=== PATIENT | male | born 1950 | race Caucasian/White ===

== ENCOUNTER 2017-05-07 07:50 | Emergency (ER) | payer OTHER, MEDICARE ==
[~2017-05-07] VITALS: Ht 165.1 cm; Wt 72.7 kg
[~2017-05-07 07:50] MED LIST: ASPI325T PO; LIPI20TA PO; METO50TA PO; PLET50TA3 PO; TRAM50TA PO
[2017-05-07 07:58] VITALS: BP 128/73; PULSE 82; RESP 18; TEMP 98.1; O2SAT 96
== END 2017-05-07 10:00 | disposition left against medical advice (07) ==
LOC: PHED 07:50
DX: S49.92XA Unspecified injury of left shoulder and upper arm, initial encounter (principal); X58.XXXA Exposure to other specified factors, initial encounter; Z53.21 Procedure and treatment not carried out due to patient leaving prior to being seen by health care provider
CPT/HCPCS: 99281

== ENCOUNTER 2017-05-09 09:04 | Emergency (ER) | payer OTHER, MEDICARE ==
[~2017-05-09] VITALS: Ht 167.6 cm; Wt 72.6 kg
[2017-05-09 09:18] VITALS: BP 134/86; PULSE 86; RESP 18; TEMP 97.6; O2SAT 96
[2017-05-09] MEDS ORDERED: METO25TA3 PO (09:29)
[2017-05-09] MEDS ORDERED: TRAM50TA PO (09:29)
[2017-05-09] MEDS ORDERED: METF500T PO (09:29)
[2017-05-09] MEDS ORDERED: CILO100T PO (09:29)
[2017-05-09] MEDS ORDERED: ASPI81CH CHEW (09:29)
[2017-05-09] MEDS ORDERED: ATOR20TA15 PO (09:29)
--- NOTE | 2017-05-09 09:44 | PD ---
HPI Chief Complaint: Musculoskeletal Complaint Time Seen by Provider: 09:15 Travel History International Travel<30 days: No Contact w/Intl Traveler<30days: No Traveled to known affect area: No History of Present Illness HPI This is a 66-year-old male who presents to the emergency department having been hammering when he had sudden onset of left wrist pain, intermittent, worse with twisting his wrist and moving his wrist, improved with rest, feeling a snapping sensation in his wrist. He never had any swelling and he is able to move everything but the pain has persisted for 2 weeks. PFSH Past Medical History Depression: Yes Cancer: No Cardiovascular Problems: Yes High Cholesterol: Yes Diabetes: Yes (BORDERLINE) Patient Takes Glucophage: Yes Diminished Hearing: No Genitourinary: No Hepatitis: No Hiatal Hernia: No Hypertension: Yes Musculoskeletal: Yes (DJD) Reproductive: No Respiratory: Yes Sleep Apnea: Yes Thyroid Disease: No Past Surgical History Abdominal Surgery: No Cardiac Surgery: No Ear Surgery: No Endocrine Surgery: No Eye Surgery: No Genitourinary Surgery: No Gynecologic Surgery: No Oral Surgery: No Pacemaker: No Thoracic Surgery: No Other Surgery: Yes (MULTIPLE SHRAPNEL REMOVAL THROUGHOUT BODY) Social History Alcohol Use: No Tobacco Use: No (QUIT 3 YEARS AGO) Substance Use: Yes (cannaboids.) Allergies-Medications (Allergen,Severity, Reaction): Coded Allergies: diclofenac (Unverified Allergy, Severe, 05/09/17) PT STATES " IT CAUSED ME TO HAVE ANEMIA" Reported Meds & Prescriptions Reported Meds & Active Scripts Active Reported Atorvastatin (Atorvastatin Calcium) 20 Mg Tab 20 Mg PO BID Tramadol (Tramadol HCl) 50 Mg Tab 200 Mg PO Q6H PRN Cilostazol 100 Mg Tab 100 Mg PO DAILY Metoprolol Tartrate 25 Mg Tab 25 Mg PO BID Metformin (Metformin HCl) 500 Mg Tab 500 Mg PO DAILY With a meal Aspirin 81 Mg Chew 81 Mg CHEW DAILY Review of Systems Except as stated in HPI: all other systems reviewed are Neg Physical Exam Narrative GENERAL:Well appearing, no acute distress SKIN: Focused skin assessment warm and dry. HEAD: Atraumatic. Normocephalic. EYES: Pupils equal and round. No injection or drainage. ENT: Moist mucous membranes NECK: Trachea midline. CARDIOVASCULAR: Regular rate and rhythm. No murmur appreciated. 2+ left radial pulse with normal capillary refill. RESPIRATORY: Clear to auscultation. Breath sounds equal bilaterally. GASTROINTESTINAL: Abdomen soft, non-tender, nondistended. MUSCULOSKELETAL: Tender to palpation over the left distal ulna with some pain with supination of the left hand and pain with abduction of the fingers. NEUROLOGICAL: Awake and alert. No obvious cranial nerve deficits. Moving all extremities. Motor and sensation is intact in the median, ulnar and radial distributions of the left hand. PSYCHIATRIC: Appropriate mood and affect; insight and judgment normal. Data Data Last Documented VS Vital Signs Date Time Temp Pulse Resp B/P (MAP) Pulse Ox O2 Delivery O2 Flow Rate FiO2 05/09/17 09:18 97.6 86 18 134/86 (102) 96 Orders Orders Wrist, Complete ([id number]) (05/09/17 ) [facility] Medical Decision Making Medical Screen Exam Complete: Yes Emergency Medical Condition: Yes Interpretation(s) Afebrile, no tachycardia, normotensive X-ray: Tiny bony fragments adjacent to the distal ulna consistent with tiny avulsion fractures of indeterminate age Differential Diagnosis Radius fracture, ulnar fracture, wrist sprain Narrative Course This is a 66-year-old male who presents to the emergency department with pain in his left wrist ever since swinging a hammer 2 weeks ago. His focused around the distal ulna. On x-ray he has tiny avulsion fractures of the distal ulna which I suspected etiology of his symptoms. Patient will be splinted and can follow up with hand surgery. He is otherwise normal neurovascular exam. Diagnosis Primary Impression: Ulna distal fracture Qualified Codes: S52.692A - Other fracture of lower end of left ulna, initial encounter for closed fracture Referrals: Cornelia Lennon MD Patient Instructions: General Instructions Additional Instructions: If you develop coolness, numbness, or severe pain of your left hand or wrist return to the emergency department. Follow up with an orthopedic or hand surgeon in one -two weeks Med/Other Pt SpecificInfo: No Change to Meds Disposition: 01 DISCHARGE HOME Condition: Stable Gina Alfonso MD May 09, 2017 09:44
--- NOTE | 2017-05-09 09:49 | RADRPT ---
EXAM DATE/TIME: 05/09/2017 09:30 [place] COMPARISON: No previous studies available for comparison. INDICATIONS : Left medial wrist pain, no known injury. MEDICAL HISTORY : None. SURGICAL HISTORY : None. ENCOUNTER: Initial ACUITY: 2 weeks PAIN SCORE: 3/10 LOCATION: Left medial wrist FINDINGS: There are tiny bone fragments adjacent to the distal ulna consistent with possible avulsion fractures of the ulnar styloid of indeterminate ages. Clinical correlation is recommended. The distal radius is intact. CONCLUSION: Tiny bone fragments adjacent to the distal ulna consistent with tiny avulsion fractures of indetermin ate ages. Clinical correlation is recommended. Nate Cartwright MD on May 09, 2017 at 9:40 Board Certified Radiologist. This report was verified electronically.
== END 2017-05-09 10:47 | disposition home or self-care (01) ==
LOC: PHEFT 09:04
DX: S52.692A Other fracture of lower end of left ulna, initial encounter for closed fracture (principal); I10 Essential (primary) hypertension; R73.03 Prediabetes; E78.00 Pure hypercholesterolemia, unspecified; G47.30 Sleep apnea, unspecified; Z79.84 Long term (current) use of oral hypoglycemic drugs; Z86.59 Personal history of other mental and behavioral disorders; Z86.79 Personal history of other diseases of the circulatory system; Z87.39 Personal history of other diseases of the musculoskeletal system and connective tissue; X58.XXXA Exposure to other specified factors, initial encounter
CPT/HCPCS: 29125; 73110

== ENCOUNTER 2018-07-07 17:59 | Inpatient (IN) ==
--- NOTE | 2018-07-07 21:09 | ED ---
HPI General Chief complaint: Seizure Stated complaint: Poss seizure per patient Time Seen by Provider: 07/07/18 20:48 History of Present Illness HPI narrative: 67-year-old male with history of hypertension, hyperlipidemia, diabetes chronic back pain presents to the emergency department for evaluation of altered mental status and possible seizure. The patient is accompanied by his daughter who also provides some of the history. The patient states that the last thing he remembers about this afternoon was at 1 PM he sat down in his recliner. States that the next thing he remembers is face timing with his daughter on the phone at 4 PM and seeing that he had blood on his face and feeling that he had bit the tip of his tongue. The patient's daughter states that her father had been acting slightly disoriented over the past few days so she called to check on him at 3 pm. States when she spoke with him at 3 he was acting strange, slightly confused and agitated. States she then called back at 4 pm and could see he had blood in his mouth so she immediately went over to pick him up. She states he is still acting slightly disoriented and confused. The patient agrees with this and states he feels a little confused and not like himself. He states he has never had anything like this happen in the past. He does complain of some pain at the tip of his tongue but otherwise has no complaints. States he was feeling nauseous earlier but thinks this is due to swallowing blood. He does admit he does not eat or drink much, he has had only a cup of apple juice today. He is also complaining of cramping pain in bilateral calves which began this afternoon. Denies any fever, chills, vomiting , diarrhea, abdominal pain, chest pain, shortness of breath, cough or cold symptoms, numbness or tingling, weakness. Denies alcohol or drug use. No other complaints. Related Data Home Medications Medication Instructions Recorded Confirmed Unable to Obtain Home Meds 07/07/18 07/07/18 Allergies Allergy/AdvReac Type Severity Reaction Status Date / Time diclofenac Allergy Severe "ANEMIA" Unverified 05/09/17 10:18 Review of Systems ROS: all other systems reviewed are negative PMFSH Social History Social History Substance History: No History of Abuse Smoking Status: Former smoker How Often Do You Have a Drink Containing Alcohol: Never Exam Narrative Exam Narrative: GENERAL: Well-nourished and well-developed male patient in no acute distress who is nontoxic appearing. SKIN: Warm and dry. HEAD: Normocephalic and atraumatic. EYES: No injection, drainage, or hyphema noted. PERRLA. EOMI. ENT: No nasal drainage noted. Tip of tongue with bite injury noted, bruising and mild swelling. Oropharynx is clear and the TMs are normal with good landmarks. NECK: Supple and the trachea is midline. CARDIOVASCULAR: Regular rate and rhythm. RESPIRATORY: Breath sounds are equal bilaterally with no accessory muscle use, wheezing, rhonchi, or crackles. GASTROINTESTINAL: Abdomen is soft, non-tender, and nondistended. MUSCULOSKELETAL: No obvious deformities, swelling, cyanosis, or ecchymosis is present throughout the upper and lower extremities. Patient has full range of motion without any signs of neurovascular compromise. Distal pulses are 2+ throughout. Strength 5/5 upper and lower extremities and equal bilaterally. NEUROLOGICAL: Awake, alert, and oriented. Patient did become confused which was his left hand and which was his right hand during exam. Normal speech and gait. Normal finger to nose test. Normal heel to kong test. Cranial nerves are grossly intact. Course Initial Documented Vital Signs Temperature 98.2 F 07/07/18 18:13 Pulse Rate 95 H 07/07/18 18:13 Respiratory Rate 24 07/07/18 18:13 Blood Pressure 113/64 07/07/18 18:13 Pulse Oximetry 94 L 07/07/18 18:13 Last Documented Vital Signs Temperature 98.2 F 07/07/18 18:13 Pulse Rate 95 H 07/07/18 18:13 Respiratory Rate 24 07/07/18 18:13 Blood Pressure 113/64 07/07/18 18:13 Pulse Oximetry 99 07/07/18 21:25 Medical Decision Making ALEXEY Attestation ALEXEY supervised visit: Yes Attestation: I, Dr. Sears, have reviewed the advance practice practitioner's documentation and am in agreement, met with the patient face to face, made the diagnosis, and the medical decision making was done by me. The patient was initially evaluated by Yesy, the ALEXEY. Please see their complete history and physical. *My assessment and Findings: The patient presents with altered mentation that has been present over the last couple of days. The patient earlier today was more confused according to his daughter and reports that he unbeknownst to have had bitten the tip of his tongue. He is unsure when this happened. Sinus tachycardia in the low 100s. The patient's neurologic examination is nonfocal. During the course of the patient's emergency department visit, the patient's history, examination, and differential diagnosis were reviewed with the patient. The patient was placed on a oncology patient navigator with oximetry and frequent blood pressure monitoring. The patient had IV access obtained and blood work sent for analysis. The patient's diagnostic studies were reviewed and remarkable for a white count of 18,000, hemoglobin 17.3, platelets 265 with neutrophils 89, , PT PTT within normal limits, chemistry is remarkable for a creatinine of 1.47, GFR 47, glucose 164, magnesium 2.8, CPK is 723 with an MB percent of 0.5, TSH is within normal limits, urinalysis shows 30 protein, few mucus, otherwise and was unremarkable. Urine drug screen is positive for cannabinoids, alcohol level is less than 3. 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 Ultrasound of bilateral lower extremities reveals no evidence of DVT. The patient will be admitted to the hospital for altered mentation associated with tongue biting, possible seizure. The patient's results were discussed with the patient, including the plan of care. I explained that further testing and/ or monitoring is indicated based on the patient's history, examination, and/ or laboratory findings. Therefore, I recommended admission for additional evaluation. The patient expressed understanding and was agreeable with this plan. The patient was admitted to the hospital in stable condition and sent to a bed under the care of the [facility] service. [facility] Narrative Medical decision making narrative: 67-year-old male presents to the emergency department for evaluation of possible seizure and altered mental status. Patient is afebrile. He is slightly tachycardic with a heart rate of 95 bpm, otherwise vital signs are unremarkable. No focal neurologic deficits. He is slightly confused on exam, becoming confused on which is his right hand vs his left hand. IV access is obtained, labs have been drawn and sent. Patient is placed on cardiac telemetry and pulse oximetry monitoring. Head CT has been ordered and is pending. Patient is unable to obtain an MRI due to pieces of shrapnel in his head and legs. EKG shows sinus rhythm with no acute ST elevation or depression. CBC shows elevated white count of 18, elevated hemoglobin 17.3, hematocrit 51.8. CMP shows elevated creatinine 1.47, GFR 47. Magnesium is slightly elevated at 2.8. CPK is elevated at 723. Troponin is 0.04. TSH is within normal limits. EtOH is negative. Chest x-ray is negative for any acute abnormalities, right pleural effusion noted. 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 Bilateral ultrasound of lower extremities negative for DVT. Urinalysis shows 30 protein and few mucus, otherwise unremarkable. Patient has remained stable while here in the ED. His white count and lactic are elevated, could be secondary to seizure vs infectious etiology. Will cover with dose of antibiotics. Blood cultures pending. Patient will be admitted to [facility] service under observation, Dr. Guzman accepts. Medical Screen Exam Complete: Yes Emergency Medical Condition: Yes Differential Diagnosis Differential Diagnosis: Seizure versus delirium versus TIA versus CVA versus intracranial hemorrhage versus dehydration versus electrolyte abnormality versus UTI Lab Data Result diagrams: 07/07/18 21:18 07/07/18 21:18 Lab Results 07/07/18 07/07/18 07/07/18 Range/Units 21:18 21:18 21:18 WBC 18.0 H (4.0-11.0) th/mm3 RBC 5.45 (4.50-5.90) mil/mm3 Hgb 17.3 H (13.0-17.0) gm/dL Hct 51.8 H (39.0-51.0) % MCV 94.9 (80.0-100.0) fL MCH 31.7 (27.0-34.0) pg MCHC 33.5 (32.0-36.0) % RDW 13.1 (11.6-17.2) % Plt Count 265 (150-450) th/mm3 MPV 8.7 (7.0-11.0) fL Neut % (Auto) 89.0 H (16.0-70.0) % Lymph % (Auto) 5.0 L (9.0-44.0) % [place] % (Auto) 5.5 (0.0-8.0) % Eos % (Auto) 0.2 (0.0-4.0) % Baso % (Auto) 0.3 (0.0-2.0) % Neut # (Auto) 16.0 H (1.8-7.7) th/mm3 Lymph # (Auto) 0.9 L (1.0-4.8) th/mm3 [place] # (Auto) 1.0 H (0.0-0.9) th/mm3 Eos # (Auto) 0.0 (0.0-0.4) th/mm3 Baso # (Auto) 0.1 (0.0-0.2) th/mm3 WBC Differential . Differential Comment Auto diff final PT 10.1 (9.8-11.6) sec INR 1.0 Ratio APTT 26.1 (23.4-31.7) sec Sodium 140 (136-145) meq/L Potassium 4.2 (3.5-5.1) meq/L Chloride 104 (98-107) meq/L Carbon Dioxide 24.9 (21.0-32.0) meq/L Anion Gap 11 (5-15) meq/L BUN 14 (7-18) mg/dL Creatinine 1.47 H (0.60-1.30) mg/dL Estimated GFR 47 L (>89) mL/min POC Glucose (68-110) mg/dl Random Glucose 164 H (74-106) mg/dL Lactic Acid (0.4-2.0) mmol/L Calcium 9.2 (8.5-10.1) mg/dL Magnesium 2.8 H (1.5-2.5) mg/dL Total Bilirubin 0.6 (0.2-1.0) mg/dL AST 27 (15-37) U/L ALT 34 (12-78) U/L Alkaline Phosphatase 115 (45-117) U/L Total Creatine Kinase 723 H (39-308) U/L CK-MB (CK-2) 3.5 (0.5-3.6) ng/mL CK-MB (CK-2) % 0.5 (0.0-4.0) % Troponin I 0.04 (0.02-0.05) ng/mL Total Protein 8.2 (6.4-8.2) g/dL Albumin 3.9 (3.4-5.0) g/dL TSH 0.487 (0.358-3.740) uIU/mL Urine Color (Yellw/Straw) Urine Clarity (Clear) Urine pH (5.0-8.5) Ur Specific Keyser (1.002-1.035) Urine Protein (Neg-Trace) mg/dL Urine Glucose (UA) (Negative) mg/dL Urine Ketones (Negative) mg/dL Urine Occult Blood (Negative) Urine Nitrate (Negative) Urine Bilirubin (Negative) Urine Urobilinogen (Less than 2) mg/dL Ur Leukocyte Esterase (Negative) Urine RBC (0-3) /hpf Urine WBC (0-5) /hpf Urine Mucus (Occasional) /lpf Micro UA Comment Ur Microscopic Review Urine Culture Comments Urine Opiates Screen (Neg) Ur Barbiturates Screen (Neg) Ur Amphetamines Screen (Neg) U Benzodiazepines Scrn (Neg) Urine Cocaine Screen (Neg) U Cannabinoids Screen (Neg) Serum Alcohol Less than 3 (0-5) mg/dL 07/07/18 07/07/18 07/07/18 Range/Units 21:18 22:35 22:40 WBC (4.0-11.0) th/mm3 RBC (4.50-5.90) mil/mm3 Hgb (13.0-17.0) gm/dL Hct (39.0-51.0) % MCV (80.0-100.0) fL MCH (27.0-34.0) pg MCHC (32.0-36.0) % RDW (11.6-17.2) % Plt Count (150-450) th/mm3 MPV (7.0-11.0) fL Neut % (Auto) (16.0-70.0) % Lymph % (Auto) (9.0-44.0) % [place] % (Auto) (0.0-8.0) % Eos % (Auto) (0.0-4.0) % Baso % (Auto) (0.0-2.0) % Neut # (Auto) (1.8-7.7) th/mm3 Lymph # (Auto) (1.0-4.8) th/mm3 [place] # (Auto) (0.0-0.9) th/mm3 Eos # (Auto) (0.0-0.4) th/mm3 Baso # (Auto) (0.0-0.2) th/mm3 WBC Differential Differential Comment PT (9.8-11.6) sec INR Ratio APTT (23.4-31.7) sec Sodium (136-145) meq/L Potassium (3.5-5.1) meq/L Chloride (98-107) meq/L Carbon Dioxide (21.0-32.0) meq/L Anion Gap (5-15) meq/L BUN (7-18) mg/dL Creatinine (0.60-1.30) mg/dL Estimated GFR (>89) mL/min POC Glucose 171 H (68-110) mg/dl Random Glucose (74-106) mg/dL Lactic Acid 2.1 H (0.4-2.0) mmol/L Calcium (8.5-10.1) mg/dL Magnesium (1.5-2.5) mg/dL Total Bilirubin (0.2-1.0) mg/dL AST (15-37) U/L ALT (12-78) U/L Alkaline Phosphatase (45-117) U/L Total Creatine Kinase (39-308) U/L CK-MB (CK-2) (0.5-3.6) ng/mL CK-MB (CK-2) % (0.0-4.0) % Troponin I (0.02-0.05) ng/mL Total Protein (6.4-8.2) g/dL Albumin (3.4-5.0) g/dL TSH (0.358-3.740) uIU/mL Urine Color (Yellw/Straw) Urine Clarity (Clear) Urine pH (5.0-8.5) Ur Specific Keyser (1.002-1.035) Urine Protein (Neg-Trace) mg/dL Urine Glucose (UA) (Negative) mg/dL Urine Ketones (Negative) mg/dL Urine Occult Blood (Negative) Urine Nitrate (Negative) Urine Bilirubin (Negative) Urine Urobilinogen (Less than 2) mg/dL Ur Leukocyte Esterase (Negative) Urine RBC (0-3) /hpf Urine WBC (0-5) /hpf Urine Mucus (Occasional) /lpf Micro UA Comment Ur Microscopic Review Urine Culture Comments Urine Opiates Screen Neg (Neg) Ur Barbiturates Screen Neg (Neg) Ur Amphetamines Screen Neg (Neg) U Benzodiazepines Scrn Neg (Neg) Urine Cocaine Screen Neg (Neg) U Cannabinoids Screen Pos H (Neg) Serum Alcohol (0-5) mg/dL 07/07/18 Range/Units 22:40 WBC (4.0-11.0) th/mm3 RBC (4.50-5.90) mil/mm3 Hgb (13.0-17.0) gm/dL Hct (39.0-51.0) % MCV (80.0-100.0) fL MCH (27.0-34.0) pg MCHC (32.0-36.0) % RDW (11.6-17.2) % Plt Count (150-450) th/mm3 MPV (7.0-11.0) fL Neut % (Auto) (16.0-70.0) % Lymph % (Auto) (9.0-44.0) % [place] % (Auto) (0.0-8.0) % Eos % (Auto) (0.0-4.0) % Baso % (Auto) (0.0-2.0) % Neut # (Auto) (1.8-7.7) th/mm3 Lymph # (Auto) (1.0-4.8) th/mm3 [place] # (Auto) (0.0-0.9) th/mm3 Eos # (Auto) (0.0-0.4) th/mm3 Baso # (Auto) (0.0-0.2) th/mm3 WBC Differential Differential Comment PT (9.8-11.6) sec INR Ratio APTT (23.4-31.7) sec Sodium (136-145) meq/L Potassium (3.5-5.1) meq/L Chloride (98-107) meq/L Carbon Dioxide (21.0-32.0) meq/L Anion Gap (5-15) meq/L BUN (7-18) mg/dL Creatinine (0.60-1.30) mg/dL Estimated GFR (>89) mL/min POC Glucose (68-110) mg/dl Random Glucose (74-106) mg/dL Lactic Acid (0.4-2.0) mmol/L Calcium (8.5-10.1) mg/dL Magnesium (1.5-2.5) mg/dL Total Bilirubin (0.2-1.0) mg/dL AST (15-37) U/L ALT (12-78) U/L Alkaline Phosphatase (45-117) U/L Total Creatine Kinase (39-308) U/L CK-MB (CK-2) (0.5-3.6) ng/mL CK-MB (CK-2) % (0.0-4.0) % Troponin I (0.02-0.05) ng/mL Total Protein (6.4-8.2) g/dL Albumin (3.4-5.0) g/dL TSH (0.358-3.740) uIU/mL Urine Color Yellow (Yellw/Straw) Urine Clarity Hazy H (Clear) Urine pH 5.0 (5.0-8.5) Ur Specific Keyser 1.009 (1.002-1.035) Urine Protein 30 H (Neg-Trace) mg/dL Urine Glucose (UA) Negative (Negative) mg/dL Urine Ketones Negative (Negative) mg/dL Urine Occult Blood Negative (Negative) Urine Nitrate Negative (Negative) Urine Bilirubin Negative (Negative) Urine Urobilinogen Less than 2 (Less than 2) mg/dL Ur Leukocyte Esterase Negative (Negative) Urine RBC 1 (0-3) /hpf Urine WBC 1 (0-5) /hpf Urine Mucus Few H (Occasional) /lpf Micro UA Comment Culture not ind Ur Microscopic Review Not Reportable Urine Culture Comments Culture not ind Urine Opiates Screen (Neg) Ur Barbiturates Screen (Neg) Ur Amphetamines Screen (Neg) U Benzodiazepines Scrn (Neg) Urine Cocaine Screen (Neg) U Cannabinoids Screen (Neg) Serum Alcohol (0-5) mg/dL Imaging Data Radiologist's impression: Chest X-Ray 07/07/18 21:05 CONCLUSION: No infiltrates seen. Right pleural effusion, possibly chronic. Head CT 07/07/18 21:05 CONCLUSION: 1. No acute findings in the brain. 2. 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 . Venous Doppler Study 07/07/18 21:05 CONCLUSION: 1. The study is negative for bilateral lower extremity deep venous thrombosis. ECG Data Attestation: I personally reviewed and interpreted this ECG as follows: Interpretation: The patient had a EKG done on arrival. The patient's EKG reveals a sinus rhythm with a short MI interval, heart rate of 86, QRS duration 89 ms, QTC [address] segment depression, inverted T waves are noted in V4, V5, V6. No acute ST segment elevation. Discharge Plan Discharge Disposition Patient Disposition: 30 Still Patient Discharge Details Diagnosis: Seizure, Altered mental status Physicians Team ED Provider: Janina Sears ED Midlevel Provider: Yesy Galvez Primary Care Provider: [facility] Attending Provider: Mei Guzman Status ED Status: Admitted Observation Patient
--- NOTE | 2018-07-07 21:23 | XR ---
EXAM DATE: 07/07/2018 9:19 PM EST AGE/SEX: 67 years / Male INDICATIONS: Cough and weakness. CLINICAL DATA: This is the patient's initial encounter. Patient reports that signs and symptoms have been present for 1 day and indicates a pain score of 0/10. MEDICAL/SURGICAL HISTORY: None. None. COMPARISON: [facility], RIBS RIGHT(W PA CXR MIN 3VWS), 04[place]10/2012. [facility] [place]. . FINDINGS: Frontal view of the chest demonstrates blunting of the costophrenic angle on the right side character istic of pleural effusion. A prior chest x-ray in 2010 and also demonstrate blunting of the costophre ricky angle suggesting this may be a chronic pleural effusion. No infiltrates seen. The heart is normal in size. No evidence of pneumothorax. CONCLUSION: No infiltrates seen. Right pleural effusion, possibly chronic. Electronically signed by: Heber Garcia MD 07/07/2018 9:22 PM EST
--- NOTE | 2018-07-07 21:38 | CT ---
EXAM DATE: 07/07/2018 9:32 PM EST AGE/SEX: 67 years / Male INDICATIONS: Altered mental status. Possible seizure. CLINICAL DATA: This is the patient's initial encounter. Patient reports that signs and symptoms have been present for 1 day and indicates a pain score of 0/10. MEDICAL/SURGICAL HISTORY: None. None. RADIATION DOSE: 35.10 CTDI (mGy) COMPARISON: [facility] – [place], CT BRAIN W/O CONTRAST, 02/02/2016. . TECHNIQUE: CT of the head without contrast. Using automated exposure control and adjustment of the mA and/or kV according to patient size, radiation dose was kept as low as reasonably achievable to ob tain optimal diagnostic quality images. DICOM format image data is available electronically for revi ew and comparison. FINDINGS: Cerebrum: The ventricles are normal for age. There is focal encephalomalacia in the left martin rad iata characteristic of old infarction, unchanged in appearance when compared to 2016. No evidence of midline shift, mass lesion, hemorrhage or acute infarction. No extraaxial fluid collections are seen . Posterior Fossa: The cerebellum and brainstem are intact. The 4th ventricle is midline. The cerebe llopontine angle is unremarkable. Extracranial: The visualized portion of the orbits is intact. Stable metallic densities about the le ft external ear, unchanged from prior. Skull: The calvaria is intact. No evidence of skull fracture. CONCLUSION: 1. No acute findings in the brain. 2. 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 . Electronically signed by: Heebr Garcia MD 07/07/2018 9:37 PM EST
[2018-07-07 21:41] LABS: Baso # (Auto) 0.1 th/mm3 (0.0-0.2); Baso % (Auto) 0.3 % (0.0-2.0); Eos % (Auto) 0.2 % (0.0-4.0); Hematocrit 51.8 % (39.0-51.0); Hemoglobin 17.3 gm/dL (13.0-17.0); Lymph # (Auto) 0.9 th/mm3 (1.0-4.8); Mean Corpuscular HGB Conc 33.5 % (32.0-36.0); Mean Corpuscular Hemoglobin 31.7 pg (27.0-34.0); Mean Corpuscular Volume 94.9 fL (80.0-100.0); Mean Platelet Volume 8.7 fL (7.0-11.0); Mono % (Auto) 5.5 % (0.0-8.0); Platelet Count 265 th/mm3 (150-450); Red Blood Count 5.45 mil/mm3 (4.50-5.90); Red Cell Distribution Width 13.1 % (11.6-17.2)
[2018-07-07 21:54] LABS: Alanine Aminotransferase 34 U/L (12-78); Albumin 3.9 g/dL (3.4-5.0); Anion Gap 11 meq/L (5-15); Aspartate Aminotransferase 27 U/L (15-37); Blood Urea Nitrogen 14 mg/dL (7-18); Calcium 9.2 mg/dL (8.5-10.1); Carbon Dioxide 24.9 meq/L (21.0-32.0); Chloride 104 meq/L (98-107); Glomerular Filtration Rate 47 mL/min (>89); Glucose,Random 164 mg/dL (74-106); Magnesium 2.8 mg/dL (1.5-2.5); Potassium 4.2 meq/L (3.5-5.1); Sodium 140 meq/L (136-145)
[2018-07-07 21:55] LABS: Activated Partial Thrombo Time 26.1 sec (23.4-31.7); Prothrombin Time 10.1 sec (9.8-11.6)
[2018-07-07] MEDS ORDERED: Sodium Chlor 0.9% Inj 500 ML IV.SIG SCH (22:00)
[2018-07-07 22:04] LABS: Alkaline Phosphatase 115 U/L (45-117); Creatine Kinase 723 U/L (39-308); Thyroid Stimulating Hormone 0.487 uIU/mL (0.358-3.740); Total Protein 8.2 g/dL (6.4-8.2); Troponin I 0.04 ng/mL (0.02-0.05)
[2018-07-07 22:16] LABS: CKMB Percent 0.5 % (0.0-4.0); Creatine Kinase MB 3.5 ng/mL (0.5-3.6)
--- NOTE | 2018-07-07 22:35 | US ---
EXAM DATE: 07/07/2018 10:31 PM EST AGE/SEX: 67 years / Male INDICATIONS: Bilateral leg pain. CLINICAL DATA: This is the patient's initial encounter. Patient reports that signs and symptoms have been present for 1 day and indicates a pain score of 0/10. MEDICAL/SURGICAL HISTORY: None. None. COMPARISON: No prior exams available for comparison. TECHNIQUE: Venous ultrasound of both lower extremities was performed from the inguinal ligament to t he proximal calf. Real-time, color Doppler and spectral tracing, compression and augmentation techni ques were used. FINDINGS: Right Leg: Normal compression of the deep venous system from the inguinal region to the proximal padmini f. No echogenic clot is seen. Normal response of the venous system to augmentation and respiration. Left Leg: Normal compression of the deep venous system from the inguinal region to the proximal calf . No echogenic clot is seen. Normal response of the venous system to augmentation and respiration. Other: None. CONCLUSION: 1. The study is negative for bilateral lower extremity deep venous thrombosis. Electronically signed by: Heber Garcia MD 07/07/2018 10:34 PM EST
[2018-07-07 23:04] LABS: Bilirubin,Urine Negative (Negative); Clarity,Urine Hazy (Clear); Color,Urine Yellow (Yellw/Straw); Glucose,Urine (UA) Negative (Negative); Leukocyte Esterase,Urine Negative (Negative); Mucus,Urine Few /lpf (Occasional); Nitrite,Urine Negative (Negative); Specific Gravity,Urine 1.009 (1.002-1.035)
[2018-07-07 23:11] LABS: Amphetamine Screen,Urine Neg (Neg); Barbiturate Screen,Urine Neg (Neg); Cannabinoid Screen,Urine Pos (Neg); Cocaine Screen,Urine Neg (Neg)
[2018-07-07 23:14] LABS: Opiate Screen,Urine Neg (Neg)
[2018-07-07] MEDS ORDERED: Piperacil/Tazo 4.5 GM Premix 4.5 GM/100 ML BAG IV.SIG ONE (23:21)
[2018-07-07] MEDS ORDERED: Vancomycin Inj 1,000 MG in Sodium Chlor 0.9% Inj 250 ML IV.SIG SCH (23:45)
[2018-07-08] MEDS ORDERED: Dextrose 50% in Water 50 ML Vial IV.PUSH PRN
[2018-07-08] MEDS ORDERED: Bisacodyl 10 MG Supp RECTAL PRN (00:01)
[2018-07-08] MEDS ORDERED: Acetaminophen 325 MG Tablet PO PRN (00:01)
--- NOTE | 2018-07-08 00:11 | P.HP ---
History of Present Illness Service: [facility] Primary Care Physician: [facility] History of Present Illness: 67-year-old male with past medical history significant for type 2 diabetes mellitus, history of CVA, hypertension, hyperlipidemia and chronic back pain presents to the emergency department for the evaluation of altered mental status. The patient reports he went to take a nap in his recliner and woke up 3 hours later confused. He states his daughter was calling him on face time and he was unable to figure out how to work for phone. He reports that he did not know the day or date as well. He states he was covered in blood from biting his tongue. He denies bowel or bladder incontinence. He has never had an incident like this in the past. No lateralizing signs/symptoms. No fever/ chills. No chest pain or shortness of breath. No nausea/vomiting/diarrhea. Review of Systems All other systems reviewed negative except as stated in HPI PMFSH - History History Provided By: Patient - Medical History Medical History: Medical History (Last Updated 07/08/18 @ 00:05 by Mei Guzman MD) Chronic back pain Diabetes HTN (hypertension) High cholesterol Macular degeneration Stroke - Surgical History Surgical History: Surgical History (Last Updated 07/08/18 @ 00:06 by Mei Guzman MD) History of shoulder surgery - Family History Family History: Family History (Last Updated 07/08/18 @ 00:06 by Mei Guzman MD) Other Diabetes mellitus - Social History I have reviewed the patient's Social History: Yes - Tobacco History Smoking Status: Former smoker - Alcohol History How Often Do You Have a Drink Containing Alcohol: Never - Substance Use History Substance History: No History of Abuse - Immunization History Tetanus Immunization: Unsure Medications and Allergies Active Medications: Active Medications Dextrose (D50w Vial) 50 ml IV.PUSH UNSCH PRN PRN Reason: PER HYPOGLYCEMIA PROTOCOL Glucagon (Glucagon Inj) 1 mg OTHER PRN PRN PRN Reason: for Hypoglycemia Protocol Vancomycin HCl 1,000 mg/ (Sodium Chloride) 250 mls @ 250 mls/hr 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 Insulin Aspart (Novolog Insulin Correctional Sugar Inj) 0 unit SQ ACHS AND 3AM GUDELIA; Protocol Sodium Chloride (Ns Flush) 2 ml IV.FLUSH PRN PRN PRN Reason: FLUSH AFTER USING IV ACCESS Last Admin: 07/07/18 21:58 Dose: 2 ml Allergies Allergy/AdvReac Type Severity Reaction Status Date / Time diclofenac Allergy Severe "ANEMIA" Unverified 05/09/17 10:18 Home Medications Medication Instructions Recorded Confirmed Type Unable to Obtain Home Meds 07/07/18 07/07/18 History Exam Vital signs: Vital Signs 07/07/18 18:13 07/07/18 21:05 07/07/18 21:18 Temperature 98.2 F Pulse Rate 95 H 94 H Respiratory Rate 24 20 Blood Pressure 113/64 140/74 Pulse Oximetry 94 L 96 96 07/07/18 21:25 07/07/18 23:18 07/07/18 23:45 Temperature Pulse Rate 90 Respiratory Rate 20 Blood Pressure 125/87 Pulse Oximetry 99 96 96 Intake & Output 07/07/18 07/07/18 07/08/18 06:59 18:59 06:59 Intake Total 500 / 500 Balance 500 / 500 Weight 72.575 kg Intake: IV 500 / 500 NS Inj 500 ML @ 1000 mls/hr IV. 500 / 500 SIG BOLUS [facility] Rx#:[id number] Narrative: Gen.: No acute distress Head: Normocephalic. Atraumatic. EENT: Pupils equal round and reactive to light. Nose without drainage. Airway intact. Throat without injection. Tongue with bite ryan and ecchymoses at the tip. Cardiovascular: Regular rate and rhythm. No murmurs, rubs or gallops. Respiratory: Lungs clear to auscultation bilaterally. No wheezes or rhonchi. Abdomen: Soft, nontender, nondistended. No peritoneal signs. Musculoskeletal: No gross deformities. No edema. Skin: No obvious rashes or erythema. Neuro: Sensory intact and equal bilaterally. Cranial nerves II through XII intact. Strength 5/5 throughout. Normal speech. Results - Labs CBC & Chem 7: 07/07/18 21:18 07/07/18 21:18 Labs: Laboratory Results - last 24 hr 07/07/18 07/07/18 07/07/18 21:18 21:18 21:18 WBC 18.0 H RBC 5.45 Hgb 17.3 H Hct 51.8 H MCV 94.9 MCH 31.7 MCHC 33.5 RDW 13.1 Plt Count 265 MPV 8.7 Neut % (Auto) 89.0 H Lymph % (Auto) 5.0 L [place] % (Auto) 5.5 Eos % (Auto) 0.2 Baso % (Auto) 0.3 Neut # (Auto) 16.0 H Lymph # (Auto) 0.9 L [place] # (Auto) 1.0 H Eos # (Auto) 0.0 Baso # (Auto) 0.1 WBC Differential . Differential Comment Auto diff final PT 10.1 INR 1.0 APTT 26.1 Sodium 140 Potassium 4.2 Chloride 104 Carbon Dioxide 24.9 Anion Gap 11 BUN 14 Creatinine 1.47 H Estimated GFR 47 L POC Glucose Random Glucose 164 H Lactic Acid Calcium 9.2 Magnesium 2.8 H Total Bilirubin 0.6 AST 27 ALT 34 Alkaline Phosphatase 115 Total Creatine Kinase 723 H CK-MB (CK-2) 3.5 CK-MB (CK-2) % 0.5 Troponin I 0.04 Total Protein 8.2 Albumin 3.9 TSH 0.487 Urine Color Urine Clarity Urine pH Ur Specific [place] Urine Protein Urine Glucose (UA) Urine Ketones Urine Occult Blood Urine Nitrate Urine Bilirubin Urine Urobilinogen Ur Leukocyte Esterase Urine RBC Urine WBC Urine Mucus Micro UA Comment Ur Microscopic Review Urine Culture Comments Urine Opiates Screen Ur Barbiturates Screen Ur Amphetamines Screen U Benzodiazepines Scrn Urine Cocaine Screen U Cannabinoids Screen Serum Alcohol Less than 3 07/07/18 07/07/18 07/07/18 21:18 22:35 22:40 WBC RBC Hgb Hct MCV MCH MCHC RDW Plt Count MPV Neut % (Auto) Lymph % (Auto) [place] % (Auto) Eos % (Auto) Baso % (Auto) Neut # (Auto) Lymph # (Auto) [place] # (Auto) Eos # (Auto) Baso # (Auto) WBC Differential Differential Comment PT INR APTT Sodium Potassium Chloride Carbon Dioxide Anion Gap BUN Creatinine Estimated GFR POC Glucose 171 H Random Glucose Lactic Acid 2.1 H Calcium Magnesium Total Bilirubin AST ALT Alkaline Phosphatase Total Creatine Kinase CK-MB (CK-2) CK-MB (CK-2) % Troponin I Total Protein Albumin TSH Urine Color Urine Clarity Urine pH Ur Specific [place] Urine Protein Urine Glucose (UA) Urine Ketones Urine Occult Blood Urine Nitrate Urine Bilirubin Urine Urobilinogen Ur Leukocyte Esterase Urine RBC Urine WBC Urine Mucus Micro UA Comment Ur Microscopic Review Urine Culture Comments Urine Opiates Screen Neg Ur Barbiturates Screen Neg Ur Amphetamines Screen Neg U Benzodiazepines Scrn Neg Urine Cocaine Screen Neg U Cannabinoids Screen Pos H Serum Alcohol 07/07/18 22:40 WBC RBC Hgb Hct MCV MCH MCHC RDW Plt Count MPV Neut % (Auto) Lymph % (Auto) [place] % (Auto) Eos % (Auto) Baso % (Auto) Neut # (Auto) Lymph # (Auto) [place] # (Auto) Eos # (Auto) Baso # (Auto) WBC Differential Differential Comment PT INR APTT Sodium Potassium Chloride Carbon Dioxide Anion Gap BUN Creatinine Estimated GFR POC Glucose Random Glucose Lactic Acid Calcium Magnesium Total Bilirubin AST ALT Alkaline Phosphatase Total Creatine Kinase CK-MB (CK-2) CK-MB (CK-2) % Troponin I Total Protein Albumin TSH Urine Color Yellow Urine Clarity Hazy H Urine pH 5.0 Ur Specific [place] 1.009 Urine Protein 30 H Urine Glucose (UA) Negative Urine Ketones Negative Urine Occult Blood Negative Urine Nitrate Negative Urine Bilirubin Negative Urine Urobilinogen Less than 2 Ur Leukocyte Esterase Negative Urine RBC 1 Urine WBC 1 Urine Mucus Few H Micro UA Comment Culture not ind Ur Microscopic Review Not Reportable Urine Culture Comments Culture not ind Urine Opiates Screen Ur Barbiturates Screen Ur Amphetamines Screen U Benzodiazepines Scrn Urine Cocaine Screen U Cannabinoids Screen Serum Alcohol - Imaging Impressions Chest X-Ray 07/07/18 21:05 CONCLUSION: No infiltrates seen. Right pleural effusion, possibly chronic. Head CT 07/07/18 21:05 CONCLUSION: 1. No acute findings in the brain. 2. 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 . Venous Doppler Study 07/07/18 21:05 CONCLUSION: 1. The study is negative for bilateral lower extremity deep venous thrombosis. Caprini VTE Risk Assessment Caprini VTE Risk Assessment: Moderate/High Risk (score >= 2) Caprini Risk Assessment Model: Point Value = 1 Point Value = 2 Point Value = 3 Point Value = 5 Age 41-60 Minor surgery BMI > 25 kg/m2 Swollen legs Varicose veins or History of unexplained or recurrent spontaneous Oral contraceptives or hormone replacement Sepsis (< 1 month) Serious lung disease, including pneumonia (< 1 month) Abnormal pulmonary function Acute myocardial infarction Congestive heart failure (< 1 month) History of inflammatory bowel disease Medical patient at bed rest Age 61-74 Arthroscopic surgery Major open surgery (> 45 min) Laparoscopic surgery (> 45 min) Malignancy Confined to bed (> 72 hours) Immobilizing plaster cast Central venous access Age >= 75 History of VTE Family history of VTE Factor V Leiden Prothrombin [id number] Lupus anticoagulant Anticardiolipin antibodies Elevated serum homocysteine Heparin-induced thrombocytopenia Other congenital or acquired thrombophilia Stroke (< 1 month) Elective arthroplasty Hip, pelvis, or leg fracture Acute spinal cord injury (< 1 month) Prophylaxis Regimen: Total Risk Factor Score Risk Level Prophylaxis Regimen 0-1 Low Early ambulation 2 Moderate Order ONE of the following: *Sequential Compression Device (SCD) *Heparin 5000 units SQ BID 3-4 Higher Order ONE of the following medications: *Heparin 5000 units SQ TID *Enoxaparin/Lovenox 40 mg SQ daily (WT < 150 kg, CrCl > 30 mL/min) *Enoxaparin/Lovenox 30 mg SQ daily (WT < 150 kg, CrCl > 10-29 mL/min) *Enoxaparin/Lovenox 30 mg SQ BID (WT < 150 kg, CrCl > 30 mL/min) AND/OR *Sequential Compression Device (SCD) 5 or more Highest Order ONE of the following medications: *Heparin 5000 units SQ TID (Preferred with Epidurals) *Enoxaparin/Lovenox 40 mg SQ daily (WT < 150 kg, CrCl > 30 mL/min) *Enoxaparin/Lovenox 30 mg SQ daily (WT < 150 kg, CrCl > 10-29 mL/min) *Enoxaparin/Lovenox 30 mg SQ BID (WT < 150 kg, CrCl > 30 mL/min) AND *Sequential Compression Device (SCD) Assessment and Plan - Plan Assessment/plan: 1. Altered mental status/? Seizure EEG pending Head CT negative for acute process with stable appearance to old left parietal infarct Unable to obtain MRI secondary to head shrapnel Neurology consulted, appreciate assistance 2. Acute kidney injury Creatinine 1.47, baseline from 2 years ago approximately 1 IV fluid hydration Monitor renal function 3. Leukocytosis Blood cultures pending UA/Chest x-ray negative Blood cultures pending Trend No indication for antibiotics at this time 4. Diabetes mellitus Sliding scale insulin Monitor blood glucose 5. Hypertension/hyperlipidemia/history of CVA Continue home medications once reconciled 6. Chronic back pain Holding home tramadol for altered mental status FEN Diabetic diet NS at 100 cc/hour Electrolytes: Monitor and replete as needed Heparin
[2018-07-08] MEDS: Sod Chloride 0.9% Inj 1,000 ML IV.CONT SCH ×3 (01:56→20:14)
[2018-07-08] MEDS: Heparin - SQ 10,000 UNITS/ML Vial SQ SCH ×3 (01:56→20:14)
[2018-07-08] MEDS: Insulin NovoLOG Aspart Correctional Sugar Inj SQ SCH ×5 (02:56→22:38)
[2018-07-08] MEDS: Senna/Docusate Sodium 8.6/50 MG Tablet PO SCH ×2 (08:11→20:13)
--- NOTE | 2018-07-08 11:04 | P.PNIM ---
Subjective Interval history: Patient is requesting Tramadol for pain. He states he has been taking this medication for years. SHAREE RN. No seizure activities. Physical Exam Vital signs: Vital Signs 07/07/18 18:13 07/07/18 21:05 07/07/18 21:18 Temperature 98.2 F Pulse Rate 95 H 94 H Respiratory Rate 24 20 Blood Pressure 113/64 140/74 Pulse Oximetry 94 L 96 96 07/07/18 21:25 07/07/18 23:18 07/07/18 23:45 Temperature Pulse Rate 90 Respiratory Rate 20 Blood Pressure 125/87 Pulse Oximetry 99 96 96 07/08/18 02:08 07/08/18 08:44 07/08/18 09:00 Temperature 98 F 98.2 F Pulse Rate 92 H 96 H 102 H Respiratory Rate 18 18 Blood Pressure 128/77 126/80 Pulse Oximetry 97 97 Intake & Output 07/07/18 07/08/18 07/08/18 18:59 06:59 18:59 Intake Total 600 / 600 1000 / 1000 Balance 600 / 600 1000 / 1000 Weight 72.575 kg Intake: IV 600 / 600 1000 / 1000 NS Inj 1,000 ML @ 100 mls/hr IV 1000 / 1000 .CONT .Q10H [facility] Rx#:[id number] Zosyn 4.5 GM Premix 4.5 gm In 100 / 100 100 ml @ 200 mls/hr IV.SIG ONCE ONE Rx#:[id number] NS Inj 500 ML @ 1000 mls/hr IV. 500 / 500 SIG BOLUS GUDELIA Rx#:[id number] Other: Date of Last Bowel Movement 07/07/18 07/08/18 Narrative: Gen.: No acute distress EENT: Tongue with bite ryan and ecchymoses at the tip. Cardiovascular: Regular rate and rhythm. No murmurs, rubs or gallops. Respiratory: Lungs clear to auscultation bilaterally. No wheezes or rhonchi. Abdomen: Soft, nontender, nondistended. No peritoneal signs. Musculoskeletal: No gross deformities. No edema. Skin: No obvious rashes or erythema. Neuro: Sensory intact and equal bilaterally. Cranial nerves II through XII intact. Strength 5/5 throughout. Normal speech. Results - Labs CBC & Chem 7: 07/07/18 21:18 07/07/18 21:18 Laboratory Results - last 24 hr 07/07/18 07/07/18 07/07/18 21:18 21:18 21:18 WBC 18.0 H RBC 5.45 Hgb 17.3 H Hct 51.8 H MCV 94.9 MCH 31.7 MCHC 33.5 RDW 13.1 Plt Count 265 MPV 8.7 Neut % (Auto) 89.0 H Lymph % (Auto) 5.0 L [place] % (Auto) 5.5 Eos % (Auto) 0.2 Baso % (Auto) 0.3 Neut # (Auto) 16.0 H Lymph # (Auto) 0.9 L [place] # (Auto) 1.0 H Eos # (Auto) 0.0 Baso # (Auto) 0.1 WBC Differential . Differential Comment Auto diff final PT 10.1 INR 1.0 APTT 26.1 Sodium 140 Potassium 4.2 Chloride 104 Carbon Dioxide 24.9 Anion Gap 11 BUN 14 Creatinine 1.47 H Estimated GFR 47 L POC Glucose Random Glucose 164 H Lactic Acid Calcium 9.2 Magnesium 2.8 H Total Bilirubin 0.6 AST 27 ALT 34 Alkaline Phosphatase 115 Total Creatine Kinase 723 H CK-MB (CK-2) 3.5 CK-MB (CK-2) % 0.5 Troponin I 0.04 Total Protein 8.2 Albumin 3.9 TSH 0.487 Urine Color Urine Clarity Urine pH Ur Specific [place] Urine Protein Urine Glucose (UA) Urine Ketones Urine Occult Blood Urine Nitrate Urine Bilirubin Urine Urobilinogen Ur Leukocyte Esterase Urine RBC Urine WBC Urine Mucus Micro UA Comment Ur Microscopic Review Urine Culture Comments Urine Opiates Screen Ur Barbiturates Screen Ur Amphetamines Screen U Benzodiazepines Scrn Urine Cocaine Screen U Cannabinoids Screen Serum Alcohol Less than 3 07/07/18 07/07/18 07/07/18 21:18 22:35 22:40 WBC RBC Hgb Hct MCV MCH MCHC RDW Plt Count MPV Neut % (Auto) Lymph % (Auto) [place] % (Auto) Eos % (Auto) Baso % (Auto) Neut # (Auto) Lymph # (Auto) [place] # (Auto) Eos # (Auto) Baso # (Auto) WBC Differential Differential Comment PT INR APTT Sodium Potassium Chloride Carbon Dioxide Anion Gap BUN Creatinine Estimated GFR POC Glucose 171 H Random Glucose Lactic Acid 2.1 H Calcium Magnesium Total Bilirubin AST ALT Alkaline Phosphatase Total Creatine Kinase CK-MB (CK-2) CK-MB (CK-2) % Troponin I Total Protein Albumin TSH Urine Color Urine Clarity Urine pH Ur Specific [place] Urine Protein Urine Glucose (UA) Urine Ketones Urine Occult Blood Urine Nitrate Urine Bilirubin Urine Urobilinogen Ur Leukocyte Esterase Urine RBC Urine WBC Urine Mucus Micro UA Comment Ur Microscopic Review Urine Culture Comments Urine Opiates Screen Neg Ur Barbiturates Screen Neg Ur Amphetamines Screen Neg U Benzodiazepines Scrn Neg Urine Cocaine Screen Neg U Cannabinoids Screen Pos H Serum Alcohol 07/07/18 07/08/18 07/08/18 22:40 02:00 02:31 WBC RBC Hgb Hct MCV MCH MCHC RDW Plt Count MPV Neut % (Auto) Lymph % (Auto) [place] % (Auto) Eos % (Auto) Baso % (Auto) Neut # (Auto) Lymph # (Auto) [place] # (Auto) Eos # (Auto) Baso # (Auto) WBC Differential Differential Comment PT INR APTT Sodium Potassium Chloride Carbon Dioxide Anion Gap BUN Creatinine Estimated GFR POC Glucose 142 H Random Glucose Lactic Acid 2.2 H Calcium Magnesium Total Bilirubin AST ALT Alkaline Phosphatase Total Creatine Kinase CK-MB (CK-2) CK-MB (CK-2) % Troponin I Total Protein Albumin TSH Urine Color Yellow Urine Clarity Hazy H Urine pH 5.0 Ur Specific [place] 1.009 Urine Protein 30 H Urine Glucose (UA) Negative Urine Ketones Negative Urine Occult Blood Negative Urine Nitrate Negative Urine Bilirubin Negative Urine Urobilinogen Less than 2 Ur Leukocyte Esterase Negative Urine RBC 1 Urine WBC 1 Urine Mucus Few H Micro UA Comment Culture not ind Ur Microscopic Review Not Reportable Urine Culture Comments Culture not ind Urine Opiates Screen Ur Barbiturates Screen Ur Amphetamines Screen U Benzodiazepines Scrn Urine Cocaine Screen U Cannabinoids Screen Serum Alcohol 07/08/18 08:09 WBC RBC Hgb Hct MCV MCH MCHC RDW Plt Count MPV Neut % (Auto) Lymph % (Auto) [place] % (Auto) Eos % (Auto) Baso % (Auto) Neut # (Auto) Lymph # (Auto) [place] # (Auto) Eos # (Auto) Baso # (Auto) WBC Differential Differential Comment PT INR APTT Sodium Potassium Chloride Carbon Dioxide Anion Gap BUN Creatinine Estimated GFR POC Glucose 144 H Random Glucose Lactic Acid Calcium Magnesium Total Bilirubin AST ALT Alkaline Phosphatase Total Creatine Kinase CK-MB (CK-2) CK-MB (CK-2) % Troponin I Total Protein Albumin TSH Urine Color Urine Clarity Urine pH Ur Specific [place] Urine Protein Urine Glucose (UA) Urine Ketones Urine Occult Blood Urine Nitrate Urine Bilirubin Urine Urobilinogen Ur Leukocyte Esterase Urine RBC Urine WBC Urine Mucus Micro UA Comment Ur Microscopic Review Urine Culture Comments Urine Opiates Screen Ur Barbiturates Screen Ur Amphetamines Screen U Benzodiazepines Scrn Urine Cocaine Screen U Cannabinoids Screen Serum Alcohol - Imaging Impressions Chest X-Ray 07/07/18 21:05 CONCLUSION: No infiltrates seen. Right pleural effusion, possibly chronic. Head CT 07/07/18 21:05 CONCLUSION: 1. No acute findings in the brain. 2. 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 . Venous Doppler Study 07/07/18 21:05 CONCLUSION: 1. The study is negative for bilateral lower extremity deep venous thrombosis. Assessment and Plan - Plan 67 Y/O male with 1. Probable seizure/AMS EEG pending Head CT negative for acute process with stable appearance to old left parietal infarct Unable to obtain MRI secondary to head shrapnel Neurology consulted, appreciate assistance Patient has been on Tramadol for chronic back pain and he has history of old stroke. Defer to Neurology on antiepileptics. His urine is positive for cannabinoids. 2. Acute kidney injury Creatinine 1.47, baseline from 2 years ago approximately 1 IV fluid hydration Monitor renal function 3. Leukocytosis No indication for antibiotics at this time Blood cultures pending UA/Chest x-ray negative Blood cultures pending Trend 4. Diabetes mellitus Sliding scale insulin Monitor blood glucose 5. Hypertension/hyperlipidemia/history of CVA Continue home medications once reconciled 6. Chronic back pain Holding home tramadol for altered mental status and seizure on prior to presentation. Start low dose [place] to be used as needed. FEN Diabetic diet NS at 100 cc/hour Electrolytes: Monitor and replete as needed Heparin Discharge Planning: Pending EEG and neurology evaluation.
--- NOTE | 2018-07-08 15:07 | P.CONNEU ---
History of Present Illness Service: Neurology Primary Care Provider: Physician [facility] Chief Complaint: Seizure History of Present Illness: 67-year-old male admitted for possible seizure activity. Noted to be confused blood on his face noted that he bit his tongue. Symptoms resolved. He believes he had a seizure. He does take tramadol for pain has been doing it for a number of years. History of previous stroke number years ago no residuals from it. Received IV TPA apparently a few years ago here for it and is done well. Takes Plavix daily. States he did not do anything differently yesterday the day before denies any sick contacts any vaccinations any medication changes per He goes to the [place] for his healthcare Denies any head or neck trauma any fever night sweats or chills any visual loss or sensory symptoms or focal weakness. Review of Systems All other systems reviewed negative except as stated in HPI PMFSH - History History Provided By: Patient - Medical History Medical History: Medical History (Last Updated 07/08/18 @ 00:05 by Mei Guzman MD) Chronic back pain Diabetes HTN (hypertension) High cholesterol Macular degeneration Stroke - Surgical History Surgical History: Surgical History (Last Updated 07/08/18 @ 00:06 by Mei Guzman MD) History of shoulder surgery - Family History Family History: Family History (Last Updated 07/08/18 @ 00:06 by Mei Guzman MD) Other Diabetes mellitus - Tobacco History Second Hand Smoke Exposure: No Smoking Status: Former smoker - Alcohol History How Often Do You Have a Drink Containing Alcohol: Never - Substance Use History Substance History: No History of Abuse - Travel History Recent Travel in the [place] Within the Last 8 Weeks: Yes Recent Travel Out of the Country Within the Last 8 Weeks: No - Immunization History Tetanus Immunization: Unsure Medications and Allergies Active Medications: Active Medications Acetaminophen (Tylenol) 650 mg PO Q4H PRN PRN Reason: Temp > 100.4 Al Hydroxide/Mg Hydroxide (Milk Of Magnesia Liq) 30 ml PO Q12H PRN PRN Reason: Mild Constipation Bisacodyl (Dulcolax Supp) 10 mg RECTAL DAILY PRN PRN Reason: SEVERE CONSITIPATION Dextrose (D50w Vial) 50 ml IV.PUSH UNSCH PRN PRN Reason: PER HYPOGLYCEMIA PROTOCOL Glucagon (Glucagon Inj) 1 mg OTHER PRN PRN PRN Reason: for Hypoglycemia Protocol Heparin Sodium (Porcine) (Heparin Inj) 5,000 units SQ Q12HR [facility] Last Admin: 07/08/18 08:11 Dose: 5,000 units Sodium Chloride (Ns Inj) 1,000 mls @ 100 mls/hr IV.CONT .Q10H [facility] Last Admin: 07/08/18 10:26 Dose: 100 mls/hr Insulin Aspart (Novolog Insulin Correctional Sugar Inj) 0 unit SQ ACHS AND 3AM [facility]; Protocol Last Admin: 07/08/18 12:30 Dose: Not Given Lactulose (Lactulose Liq) 30 ml PO DAILY PRN PRN Reason: SEVERE CONSITIPATION Ondansetron HCl (Zofran Inj) 4 mg IV.PUSH Q6H PRN PRN Reason: NAUSEA OR VOMITING Senna/Docusate Sodium (Danette-Colace) 1 tab PO BID [facility] Last Admin: 07/08/18 08:11 Dose: Not Given Sennosides (Senokot) 17.2 mg PO Q12H PRN PRN Reason: Moderate Constipation Sodium Chloride (Ns Flush) 2 ml IV.FLUSH PRN PRN PRN Reason: FLUSH AFTER USING IV ACCESS Last Admin: 07/07/18 21:58 Dose: 2 ml Allergies Allergy/AdvReac Type Severity Reaction Status Date / Time diclofenac Allergy Severe "ANEMIA" Verified 07/08/18 12:33 Home Medications Medication Instructions Recorded Confirmed Type clopidogrel [Plavix] 75 mg PO DAILY 07/08/18 07/08/18 History metformin 07/08/18 History tramadol 100 mg PO Q6H 07/08/18 07/08/18 History Exam Vital signs: Vital Signs 07/07/18 18:13 07/07/18 21:05 07/07/18 21:18 Temperature 98.2 F Pulse Rate 95 H 94 H Respiratory Rate 24 20 Blood Pressure 113/64 140/74 Pulse Oximetry 94 L 96 96 07/07/18 21:25 07/07/18 23:18 07/07/18 23:45 Temperature Pulse Rate 90 Respiratory Rate 20 Blood Pressure 125/87 Pulse Oximetry 99 96 96 07/08/18 02:08 07/08/18 08:44 07/08/18 09:00 Temperature 98 F 98.2 F Pulse Rate 92 H 96 H 102 H Respiratory Rate 18 18 Blood Pressure 128/77 126/80 Pulse Oximetry 97 97 07/08/18 12:17 Temperature 98.1 F Pulse Rate 105 H Respiratory Rate 20 Blood Pressure 122/71 Pulse Oximetry 96 Intake & Output 07/07/18 07/08/18 07/08/18 18:59 06:59 18:59 Intake Total 600 / 600 1000 / 1000 Balance 600 / 600 1000 / 1000 Weight 72.575 kg Intake: IV 600 / 600 1000 / 1000 NS Inj 1,000 ML @ 100 mls/hr IV 1000 / 1000 .CONT .Q10H [facility] Rx#:[id number] Zosyn 4.5 GM Premix 4.5 gm In 100 / 100 100 ml @ 200 mls/hr IV.SIG ONCE ONE Rx#:[id number] NS Inj 500 ML @ 1000 mls/hr IV. 500 / 500 SIG BOLUS [facility] Rx#:[id number] Other: Date of Last Bowel Movement 07/07/18 07/08/18 Narrative: GENERAL: in NAD, SKIN: Warm and dry. ENT: No nasal bleeding or discharge. NECK: Trachea midline. No JVD. CARDIOVASCULAR: Regular rate and rhythm. RESPIRATORY: No accessory muscle use. GASTROINTESTINAL: Abdomen soft, non-tender, nondistended. MUSCULOSKELETAL: Extremities without clubbing, cyanosis, or edema. NEUROLOGICAL: Awake and alert. No aphasia, fluent articulate, No facial asymmetry, OU 3-2mm, eomi, VFF, No drift, Motor grossly within normal limits. Five out of 5 muscle strength in the arms and legs. No clonus reflex 1+ symmetric PSYCHIATRIC: Appropriate mood and affect; insight and judgment normal. - Constitutional no acute distress - Routine HEENT Exam Head: Present: normocephalic Eye: Present: EOMI Results - Labs CBC & Chem 7: 07/07/18 21:18 07/07/18 21:18 Labs: Laboratory Results - last 24 hr 07/07/18 07/07/18 07/07/18 21:18 21:18 21:18 WBC 18.0 H RBC 5.45 Hgb 17.3 H Hct 51.8 H MCV 94.9 MCH 31.7 MCHC 33.5 RDW 13.1 Plt Count 265 MPV 8.7 Neut % (Auto) 89.0 H Lymph % (Auto) 5.0 L [place] % (Auto) 5.5 Eos % (Auto) 0.2 Baso % (Auto) 0.3 Neut # (Auto) 16.0 H Lymph # (Auto) 0.9 L [place] # (Auto) 1.0 H Eos # (Auto) 0.0 Baso # (Auto) 0.1 WBC Differential . Differential Comment Auto diff final PT 10.1 INR 1.0 APTT 26.1 Sodium 140 Potassium 4.2 Chloride 104 Carbon Dioxide 24.9 Anion Gap 11 BUN 14 Creatinine 1.47 H Estimated GFR 47 L POC Glucose Random Glucose 164 H Lactic Acid Calcium 9.2 Magnesium 2.8 H Total Bilirubin 0.6 AST 27 ALT 34 Alkaline Phosphatase 115 Total Creatine Kinase 723 H CK-MB (CK-2) 3.5 CK-MB (CK-2) % 0.5 Troponin I 0.04 Total Protein 8.2 Albumin 3.9 TSH 0.487 Urine Color Urine Clarity Urine pH Ur Specific Roby Urine Protein Urine Glucose (UA) Urine Ketones Urine Occult Blood Urine Nitrate Urine Bilirubin Urine Urobilinogen Ur Leukocyte Esterase Urine RBC Urine WBC Urine Mucus Micro UA Comment Ur Microscopic Review Urine Culture Comments Urine Opiates Screen Ur Barbiturates Screen Ur Amphetamines Screen U Benzodiazepines Scrn Urine Cocaine Screen U Cannabinoids Screen Serum Alcohol Less than 3 07/07/18 07/07/18 07/07/18 21:18 22:35 22:40 WBC RBC Hgb Hct MCV MCH MCHC RDW Plt Count MPV Neut % (Auto) Lymph % (Auto) [place] % (Auto) Eos % (Auto) Baso % (Auto) Neut # (Auto) Lymph # (Auto) [place] # (Auto) Eos # (Auto) Baso # (Auto) WBC Differential Differential Comment PT INR APTT Sodium Potassium Chloride Carbon Dioxide Anion Gap BUN Creatinine Estimated GFR POC Glucose 171 H Random Glucose Lactic Acid 2.1 H Calcium Magnesium Total Bilirubin AST ALT Alkaline Phosphatase Total Creatine Kinase CK-MB (CK-2) CK-MB (CK-2) % Troponin I Total Protein Albumin TSH Urine Color Urine Clarity Urine pH Ur Specific Roby Urine Protein Urine Glucose (UA) Urine Ketones Urine Occult Blood Urine Nitrate Urine Bilirubin Urine Urobilinogen Ur Leukocyte Esterase Urine RBC Urine WBC Urine Mucus Micro UA Comment Ur Microscopic Review Urine Culture Comments Urine Opiates Screen Neg Ur Barbiturates Screen Neg Ur Amphetamines Screen Neg U Benzodiazepines Scrn Neg Urine Cocaine Screen Neg U Cannabinoids Screen Pos H Serum Alcohol 07/07/18 07/08/18 07/08/18 22:40 02:00 02:31 WBC RBC Hgb Hct MCV MCH MCHC RDW Plt Count MPV Neut % (Auto) Lymph % (Auto) [place] % (Auto) Eos % (Auto) Baso % (Auto) Neut # (Auto) Lymph # (Auto) [place] # (Auto) Eos # (Auto) Baso # (Auto) WBC Differential Differential Comment PT INR APTT Sodium Potassium Chloride Carbon Dioxide Anion Gap BUN Creatinine Estimated GFR POC Glucose 142 H Random Glucose Lactic Acid 2.2 H Calcium Magnesium Total Bilirubin AST ALT Alkaline Phosphatase Total Creatine Kinase CK-MB (CK-2) CK-MB (CK-2) % Troponin I Total Protein Albumin TSH Urine Color Yellow Urine Clarity Hazy H Urine pH 5.0 Ur Specific Roby 1.009 Urine Protein 30 H Urine Glucose (UA) Negative Urine Ketones Negative Urine Occult Blood Negative Urine Nitrate Negative Urine Bilirubin Negative Urine Urobilinogen Less than 2 Ur Leukocyte Esterase Negative Urine RBC 1 Urine WBC 1 Urine Mucus Few H Micro UA Comment Culture not ind Ur Microscopic Review Not Reportable Urine Culture Comments Culture not ind Urine Opiates Screen Ur Barbiturates Screen Ur Amphetamines Screen U Benzodiazepines Scrn Urine Cocaine Screen U Cannabinoids Screen Serum Alcohol 07/08/18 07/08/18 08:09 12:09 WBC RBC Hgb Hct MCV MCH MCHC RDW Plt Count MPV Neut % (Auto) Lymph % (Auto) [place] % (Auto) Eos % (Auto) Baso % (Auto) Neut # (Auto) Lymph # (Auto) [place] # (Auto) Eos # (Auto) Baso # (Auto) WBC Differential Differential Comment PT INR APTT Sodium Potassium Chloride Carbon Dioxide Anion Gap BUN Creatinine Estimated GFR POC Glucose 144 H 135 H Random Glucose Lactic Acid Calcium Magnesium Total Bilirubin AST ALT Alkaline Phosphatase Total Creatine Kinase CK-MB (CK-2) CK-MB (CK-2) % Troponin I Total Protein Albumin TSH Urine Color Urine Clarity Urine pH Ur Specific Roby Urine Protein Urine Glucose (UA) Urine Ketones Urine Occult Blood Urine Nitrate Urine Bilirubin Urine Urobilinogen Ur Leukocyte Esterase Urine RBC Urine WBC Urine Mucus Micro UA Comment Ur Microscopic Review Urine Culture Comments Urine Opiates Screen Ur Barbiturates Screen Ur Amphetamines Screen U Benzodiazepines Scrn Urine Cocaine Screen U Cannabinoids Screen Serum Alcohol - Imaging Impressions Chest X-Ray 07/07/18 21:05 CONCLUSION: No infiltrates seen. Right pleural effusion, possibly chronic. Head CT 07/07/18 21:05 CONCLUSION: 1. No acute findings in the brain. 2. 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 . Venous Doppler Study 07/07/18 21:05 CONCLUSION: 1. The study is negative for bilateral lower extremity deep venous thrombosis. 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 Treated with IV TPA. Carotid ultrasound negative. Unable to get MRI brain due to metal shrapnel Sodium calcium magnesium glucose normal Risk factor stroke include previous stroke, tramadol use Recommendation Follow-up EEG Agree with Jas Told him to stop taking tramadol DC planning in a.m. Follow-up with his [place] physicians primary care and neurology at the [place] No driving, operating any heavy machinery or dangerous machinery, swimming alone for at least 6 months of being seizure, spell free.
--- NOTE | 2018-07-08 18:09 | ECG ---
Date Performed: 07/07/2018 Time Performed: 23:05:30 PTAGE: 67 years EKG: Sinus rhythm WITH SHORT MS INTERVAL ST DEVIATION AND MODERATE T-WAVE ABNORMALITY, CONSIDER LATERAL ISCHEMIA ABNOR MAL ECG PREVIOUS TRACING :02/01/2016 @14.02 Since the previous tracing, no significant change noted DOCTOR: Patricia Leal Interpretating Date/Time 07/08/2018 18:06:49
[2018-07-08] MEDS: levETIRAcetam 500 MG Tablet PO SCH (20:14)
--- NOTE | 2018-07-08 21:12 | MG ---
cc: Darius Forrester MD DATE OF STUDY: 07/08/2018. ELECTROENCEPHALOGRAM RECORD NUMBER: [id number]. DESCRIPTION: There is 7-9 Hz posterior rhythm, 20-40 microvolts, low-amplitude beta in the frontal channels. Good anterior to posterior gradient. Rhythmic theta activity occurring at T3, epoch 16. Mild focal slowing right temporal region, the left side, 20-50 microvolt activity. More burst of rhythmic nonspecific activity T3, epoch 30. Good EEG variability reactivity. Slowing bursts of 2-3 Hz delta transition into drowsy state, K-complexes and spindles. Good driving with photic stimulation. Single lead EKG showing sinus rhythm. INTERPRETATION: Mild nonspecific changes noted above, awake sleep electroencephalogram. Clinical correlation. Darius Forrester MD MG/em , 08:45 PM , 08:[address] [facility]
[2018-07-09] MEDS: Insulin NovoLOG Aspart Correctional Sugar Inj SQ SCH ×5 (04:37→22:04)
--- NOTE | 2018-07-09 05:26 | P.PN ---
Subjective Interval history: F/U Sz. He is doing okay completely asymptomatic denies headache and muscle pains. CK worse at 1700 agrees to be IV hydrated. He has adequate oral intake. Physical Exam Vital signs: Vital Signs 07/08/18 08:44 07/08/18 09:00 07/08/18 12:17 Temperature 98.2 F 98.1 F Pulse Rate 96 H 102 H 105 H Respiratory Rate 18 20 Blood Pressure 126/80 122/71 Pulse Oximetry 97 96 07/08/18 16:50 07/08/18 20:00 07/09/18 00:00 Temperature 99.0 F 98.0 F 99.1 F Pulse Rate 105 H 76 109 H Respiratory Rate 20 18 21 Blood Pressure 138/85 116/55 L 139/96 H Pulse Oximetry 96 99 96 Intake & Output 07/08/18 07/08/18 07/09/18 06:59 18:59 06:59 Intake Total 600 / 600 1000 / 1000 200 / 200 Balance 600 / 600 1000 / 1000 200 / 200 Intake: IV 600 / 600 1000 / 1000 200 / 200 NS Inj 1,000 ML @ 100 mls/hr IV 1000 / 1000 200 / 200 .CONT .Q10H [facility] Rx#:[id number] Zosyn 4.5 GM Premix 4.5 gm In 100 / 100 100 ml @ 200 mls/hr IV.SIG ONCE ONE Rx#:[id number] NS Inj 500 ML @ 1000 mls/hr IV. 500 / 500 SIG BOLUS [facility] Rx#:[id number] Other: Date of Last Bowel Movement 07/07/18 07/08/18 07/08/18 Narrative: GENERAL: in NAD, SKIN: Warm and dry. CARDIOVASCULAR: Regular rate and rhythm. RESPIRATORY: No accessory muscle use. GASTROINTESTINAL: Abdomen soft, non-tender, nondistended. MUSCULOSKELETAL: Extremities without clubbing, cyanosis, or edema. NEUROLOGICAL: Awake and alert. No aphasia, No facial asymmetry, Motor grossly within normal limits. Five out of 5 muscle strength in the arms and legs. No clonus reflex 1+ symmetric PSYCHIATRIC: Appropriate mood and affect; insight and judgment normal. Results - Labs CBC & Chem 7: 07/09/18 06:16 07/09/18 06:16 Laboratory Results - last 24 hr 07/08/18 07/08/18 07/08/18 08:09 12:09 16:21 POC Glucose 144 H 135 H 157 H 07/08/18 07/09/18 21:51 04:19 POC Glucose 126 H 121 H Microbiology 07/07/18 22:25 Blood - Peripheral Aerobic Blood Culture - Preliminary No growth in 1 day 07/07/18 22:25 Blood - Peripheral Anaerobic Blood Culture - Preliminary No growth in 1 day 07/07/18 22:35 Blood - Peripheral Aerobic Blood Culture - Preliminary No growth in 1 day 07/07/18 22:35 Blood - Peripheral Anaerobic Blood Culture - Preliminary No growth in 1 day - Imaging ITS Impressions Chest X-Ray 07/07/18 21:05 CONCLUSION: No infiltrates seen. Right pleural effusion, possibly chronic. Head CT 07/07/18 21:05 CONCLUSION: 1. No acute findings in the brain. 2. 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 . Venous Doppler Study 07/07/18 21:05 CONCLUSION: 1. The study is negative for bilateral lower extremity deep venous thrombosis. - Procedures none Assessment and Plan - Plan 67 Y/O male with 1. Probable seizure/AMS EEG with nonspecific changes Head CT negative for acute process with stable appearance to old left parietal infarct. Resume Plavix Unable to obtain MRI secondary to head shrapnel Neurology consulted, appreciate assistance Patient has been on Tramadol for chronic back pain and he has history of old stroke. Defer to Neurology on antiepileptics started on Keppra. Avoid tramadol. His urine is positive for cannabinoids, he has been counseled. 2. Acute kidney injury Creatinine 1.47, baseline from 2 years ago approximately 1 This is resolved with IV fluid hydration. Avoid nephrotoxic Monitor renal function 3. Leukocytosis No indication for antibiotics at this time Blood cultures pending UA/Chest x-ray negative Blood cultures pending negative to date Improved 4. Diabetes mellitus Sliding scale insulin Monitor blood glucose Restart metformin 5. Hypertension/hyperlipidemia/history of CVA Continue home medications once reconciled 6. Chronic back pain Holding home tramadol for altered mental status and seizure on prior to presentation. 7. Rhabdomyolysis likely because of acute kidney injury. This is slightly worse level up to 1700 which is still mild. Continue IV hydration and repeat CK today if improved patient can be discharged home (he wants to go home today) . He has adequate oral intake. Patient educated to monitor for symptoms of rhabdomyolysis and acute kidney injury FEN Diabetic diet NS at 100 cc/hour Electrolytes: Monitor and replete as needed Heparin Discharge Planning: Discharge patient to home Condition on discharge: Improved Regular Diet as tolerated Ad Traci activity, no driving, no swimming alone, no climbing heights and no carrying young children Rx written: Jas Follow-up with primary care physician
[2018-07-09 07:16] LABS: Baso % (Auto) 0.3 % (0.0-2.0); Eos # (Auto) 0.2 th/mm3 (0.0-0.4); Eos % (Auto) 1.6 % (0.0-4.0); Hematocrit 44.3 % (39.0-51.0); Hemoglobin 15.1 gm/dL (13.0-17.0); Lymph # (Auto) 1.4 th/mm3 (1.0-4.8); Lymph % (Auto) 12.4 % (9.0-44.0); Mean Corpuscular HGB Conc 34.1 % (32.0-36.0); Mean Corpuscular Hemoglobin 32.5 pg (27.0-34.0); Mean Corpuscular Volume 95.3 fL (80.0-100.0); Mean Platelet Volume 8.9 fL (7.0-11.0); Mono % (Auto) 8.5 % (0.0-8.0); Neut # (Auto) 8.8 th/mm3 (1.8-7.7); Neut % (Auto) 77.2 % (16.0-70.0); Platelet Count 192 th/mm3 (150-450); Red Blood Count 4.65 mil/mm3 (4.50-5.90); White Blood Count 11.5 th/mm3 (4.0-11.0)
[2018-07-09 07:47] LABS: Calcium 8.6 mg/dL (8.5-10.1); Carbon Dioxide 24.2 meq/L (21.0-32.0); Potassium 3.7 meq/L (3.5-5.1)
[2018-07-09 08:19] LABS: CKMB Percent 0.5 % (0.0-4.0); Creatine Kinase MB 8.9 ng/mL (0.5-3.6)
[2018-07-09] MEDS: levETIRAcetam 500 MG Tablet PO SCH ×2 (10:06→20:16)
[2018-07-09] MEDS: KCL 20 mEq/NACL 0.45% Inj 1,000 ML IV.CONT SCH ×2 (10:06→20:16)
[2018-07-09] MEDS: Heparin - SQ 10,000 UNITS/ML Vial SQ SCH ×2 (10:06→20:16)
[2018-07-09] MEDS: Senna/Docusate Sodium 8.6/50 MG Tablet PO SCH ×2 (10:06→20:17)
[2018-07-09 16:13] LABS: Calcium 8.8 mg/dL (8.5-10.1); Carbon Dioxide 25.9 meq/L (21.0-32.0); Potassium 3.7 meq/L (3.5-5.1)
[2018-07-09 17:26] LABS: CKMB Percent 0.4 % (0.0-4.0); Creatine Kinase MB 7.5 ng/mL (0.5-3.6)
[2018-07-10] MEDS: Insulin NovoLOG Aspart Correctional Sugar Inj SQ SCH ×5 (03:38→22:14)
[2018-07-10] MEDS: KCL 20 mEq/NACL 0.45% Inj 1,000 ML IV.CONT SCH (06:03)
[2018-07-10 06:29] LABS: Carbon Dioxide 25.6 meq/L (21.0-32.0); Potassium 3.6 meq/L (3.5-5.1)
[2018-07-10 07:45] LABS: CKMB Percent 0.2 % (0.0-4.0); Creatine Kinase MB 6.5 ng/mL (0.5-3.6)
[2018-07-10] MEDS ORDERED: Sodium Chloride 0.9% 2 ML Flush PRN IV.FLUSH (08:46)
[2018-07-10] MEDS: Senna/Docusate Sodium 8.6/50 MG Tablet PO SCH ×2 (09:11→21:16)
[2018-07-10] MEDS: Heparin - SQ 10,000 UNITS/ML Vial SQ SCH ×2 (09:11→21:18)
[2018-07-10] MEDS: levETIRAcetam 500 MG Tablet PO SCH ×2 (09:11→21:16)
--- NOTE | 2018-07-10 09:48 | P.PN ---
Subjective Interval history: Follow-up rhabdomyolysis. Denies muscle pains and urinary complaints per reports of allergy symptoms. Physical Exam Vital signs: Vital Signs 07/09/18 14:00 07/09/18 17:05 07/09/18 20:00 Temperature 99.0 F 98.2 F 98.9 F Pulse Rate 94 H 92 H 96 H Respiratory Rate 18 20 19 Blood Pressure 115/77 133/83 139/94 H Pulse Oximetry 96 98 96 07/09/18 23:34 07/10/18 02:56 07/10/18 08:00 Temperature 98.4 F 98.3 F 98.3 F Pulse Rate 97 H 78 94 H Respiratory Rate 18 18 16 Blood Pressure 146/99 H 145/98 H Pulse Oximetry 97 96 99 Intake & Output 07/09/18 07/10/18 07/10/18 18:59 06:59 18:59 Intake Total 1999 Balance 1999 Intake: IV 1999 Potassium Chlor 20 mEq/NACL 0. 1999 45% Inj 1,000 ML @ 100 mls/hr IV.CONT .Q10H [facility] Rx#:[id number] Other: Date of Last Bowel Movement 07/09/18 Narrative: GENERAL: in NAD, SKIN: Warm and dry. CARDIOVASCULAR: Regular rate and rhythm. RESPIRATORY: No accessory muscle use. GASTROINTESTINAL: Abdomen soft, non-tender, nondistended. MUSCULOSKELETAL: Extremities without clubbing, cyanosis, or edema. NEUROLOGICAL: Awake and alert. No aphasia, No facial asymmetry, Motor grossly within normal limits. Five out of 5 muscle strength in the arms and legs. Results - Labs CBC & Chem 7: 07/09/18 06:16 07/10/18 05:05 Laboratory Results - last 24 hr 07/09/18 07/09/18 07/09/18 13:26 15:45 15:45 Sodium 142 Potassium 3.7 Chloride 107 Carbon Dioxide 25.9 Anion Gap 9 BUN 14 Creatinine 1.18 Estimated GFR 61 L POC Glucose 127 H Random Glucose 150 H Calcium 8.8 Total Creatine Kinase 1980 H CK-MB (CK-2) 7.5 H CK-MB (CK-2) % 0.4 07/09/18 07/09/18 07/09/18 18:11 20:22 22:01 Sodium Potassium Chloride Carbon Dioxide Anion Gap BUN Creatinine Estimated GFR POC Glucose 105 186 H 152 H Random Glucose Calcium Total Creatine Kinase CK-MB (CK-2) CK-MB (CK-2) % 07/10/18 07/10/18 07/10/18 03:33 05:05 07:57 Sodium 145 Potassium 3.6 Chloride 108 H Carbon Dioxide 25.6 Anion Gap 11 BUN 14 Creatinine 1.00 Estimated GFR 74 L POC Glucose 108 130 H Random Glucose 122 H Calcium 9.0 Total Creatine Kinase 4009 H CK-MB (CK-2) 6.5 H CK-MB (CK-2) % 0.2 Microbiology 07/07/18 22:25 Blood - Peripheral Aerobic Blood Culture - Preliminary No growth in 2 days 07/07/18 22:25 Blood - Peripheral Anaerobic Blood Culture - Preliminary No growth in 2 days 07/07/18 22:35 Blood - Peripheral Aerobic Blood Culture - Preliminary No growth in 2 days 07/07/18 22:35 Blood - Peripheral Anaerobic Blood Culture - Preliminary No growth in 2 days - Imaging ITS Impressions Chest X-Ray 07/07/18 21:05 CONCLUSION: No infiltrates seen. Right pleural effusion, possibly chronic. Head CT 07/07/18 21:05 CONCLUSION: 1. No acute findings in the brain. 2. 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 . Venous Doppler Study 07/07/18 21:05 CONCLUSION: 1. The study is negative for bilateral lower extremity deep venous thrombosis. - Procedures none Assessment and Plan - Plan 67 Y/O male with 1. Probable seizure/AMS EEG with nonspecific changes Head CT negative for acute process with stable appearance to old left parietal infarct. Resume Plavix Unable to obtain MRI secondary to head shrapnel Neurology consulted, appreciate assistance Patient has been on Tramadol for chronic back pain and he has history of old stroke. Defer to Neurology on antiepileptics started on Keppra. Avoid tramadol. His urine is positive for cannabinoids, he has been counseled. 2. Acute kidney injury Creatinine 1.47, baseline from 2 years ago approximately 1 This is resolved with IV fluid hydration. Avoid nephrotoxic agents Monitor renal function 3. Leukocytosis No indication for antibiotics at this time Blood cultures pending UA/Chest x-ray negative Blood cultures pending negative to date Improved 4. Diabetes mellitus Sliding scale insulin Monitor blood glucose Restart metformin 5. Hypertension/hyperlipidemia/history of CVA Continue home medications once reconciled 6. Chronic back pain Holding home tramadol for altered mental status and seizure on prior to presentation. 7. Rhabdomyolysis from seizure. CK level worse up to 4000 switch to bicarb drip. He has adequate oral intake. Patient educated to monitor for symptoms of rhabdomyolysis and acute kidney injury FEN Diabetic diet Electrolytes: Monitor and replete as needed Heparin for DVT prophylaxis Discharge Planning: Discharge patient to home possibly in the morning Condition on discharge: Improved Regular Diet as tolerated Ad Traci activity, no driving, no swimming alone, no climbing heights and no carrying young children Rx written: Jas Follow-up with primary care physician
[2018-07-10] MEDS: Sodium Chloride 0.9% 2 ML Flush BID IV.FLUSH SCH ×2 (10:17→21:16)
[2018-07-10] MEDS: POTASSIUM CHLORIDE IV.CONT SCH ×2 (10:57→22:14)
[2018-07-10] MEDS: [UNRECOGNIZED DRUG - OTHER] IV.CONT SCH ×2 (10:57→22:14)
[2018-07-10] MEDS: SODIUM BICARBONATE IV.CONT SCH ×2 (10:57→22:14)
[2018-07-10] MEDS: Loratadine 10 MG Tablet PO SCH (11:11)
[2018-07-10] MEDS ORDERED: Lidocaine 5% Patch T-DERMAL SCH (21:00)
[2018-07-10] MEDS: Methocarbamol 500 MG Tablet PO SCH (21:16)
[2018-07-11] MEDS: Insulin NovoLOG Aspart Correctional Sugar Inj SQ SCH ×2 (03:13→10:16)
[2018-07-11] MEDS: POTASSIUM CHLORIDE IV.CONT SCH (06:23)
[2018-07-11] MEDS: SODIUM BICARBONATE IV.CONT SCH (06:23)
[2018-07-11] MEDS: [UNRECOGNIZED DRUG - OTHER] IV.CONT SCH (06:23)
[2018-07-11 07:11] VITALS: PULSE 89; RESP 18; TEMP 98.1; O2SAT 94
[2018-07-11 07:13] VITALS: BP 159/89
[2018-07-11 08:00] LABS: Calcium 8.9 mg/dL (8.5-10.1); Carbon Dioxide 25.1 meq/L (21.0-32.0); Magnesium 1.9 mg/dL (1.5-2.5)
[2018-07-11 08:29] LABS: CKMB Percent 0.1 % (0.0-4.0)
--- NOTE | 2018-07-11 08:32 | P.DS ---
Date of admission: 07/10/18 09:46 Primary care physician: [facility] Brief History from admission: 67-year-old male with past medical history significant for type 2 diabetes mellitus, history of CVA, hypertension, hyperlipidemia and chronic back pain presents to the emergency department for the evaluation of altered mental status. The patient reports he went to take a nap in his recliner and woke up 3 hours later confused. He states his daughter was calling him on face time and he was unable to figure out how to work for phone. He reports that he did not know the day or date as well. He states he was covered in blood from biting his tongue. He denies bowel or bladder incontinence. He has never had an incident like this in the past. No lateralizing signs/symptoms. No fever/ chills. No chest pain or shortness of breath. No nausea/vomiting/diarrhea. DS: Medications - Discharge Medications Prescriptions: levetiracetam [Keppra] 500 mg PO BID #60 tab methocarbamol 500 mg PO TID #90 tab DS: Summary Hospital Course: 67 Y/O male with 1. Probable seizure/AMS EEG with nonspecific changes Head CT negative for acute process with stable appearance to old left parietal infarct. Resume Plavix Unable to obtain MRI secondary to head shrapnel Neurology consulted, appreciate assistance Patient has been on Tramadol for chronic back pain and he has history of old stroke. Defer to Neurology on antiepileptics started on Keppra. Avoid tramadol. His urine is positive for cannabinoids, he has been counseled. 2. Acute kidney injury Creatinine 1.47, baseline from 2 years ago approximately 1 This is resolved with IV fluid hydration. Avoid nephrotoxic agents Monitor renal function 3. Leukocytosis No indication for antibiotics at this time Blood cultures pending UA/Chest x-ray negative Blood cultures pending negative to date Improved 4. Diabetes mellitus Sliding scale insulin Monitor blood glucose Restart metformin 5. Hypertension/hyperlipidemia/history of CVA Continue home medications once reconciled discussed with RN. BP slightly elevated because of pain, receiving IV fluids and not on home BP medications. 6. Chronic back pain Holding home tramadol for altered mental status and seizure on prior to presentation. Continue Robaxin and Lidoderm patch 7. Rhabdomyolysis from seizure. CK level improving on bicarb drip. He has adequate oral intake. Patient educated to monitor for symptoms of rhabdomyolysis and acute kidney injury. Patient advised not to take Lipitor until cleared by PCP FEN Diabetic diet Electrolytes: Monitor and replete as needed Heparin for DVT prophylaxis - Time Spent with Patient Total time spent providing and/or coordinating discharge services: Greater than 30 minutes - Quality: VTE Deep Vein Thrombosis/Pulmonary Embolism Present on Admission: No Exam Vital signs: Vital Signs 07/10/18 12:00 07/10/18 16:35 07/10/18 19:43 Temperature 97.9 F 98.5 F 98.8 F Pulse Rate 101 H 94 H 104 H Respiratory Rate 16 17 14 Blood Pressure 150/85 H 143/95 H 153/94 H Pulse Oximetry 97 96 96 07/11/18 00:00 07/11/18 04:00 07/11/18 07:07 Temperature 99.9 F H 99.0 F 98.1 F Pulse Rate 94 H 100 H 89 Respiratory Rate 16 16 18 Blood Pressure 160/100 H 142/97 H 159/89 H Pulse Oximetry 97 96 94 L Intake & Output 07/10/18 07/11/18 07/11/18 18:59 06:59 18:59 Intake Total 400 / 400 1070 / 1070 Balance 400 / 400 1070 / 1070 Intake: IV 400 / 400 1070 / 1070 Potassium Chlor 20 mEq/NACL 0. 400 / 400 45% Inj 1,000 ML @ 100 mls/hr IV.CONT .Q10H GUDELIA Rx#:[id number] Sodium Bicarbonate 8.4% Inj 50 1070 / 1070 MEQ KCl Inj 40 MEQ In 1/2 Normal Saline Inj 1,000 ML @ 100 mls/hr IV.CONT .[id number] GUDELIA Rx#:[id number] Other: Date of Last Bowel Movement 07/09/18 Narrative: GENERAL: in NAD, SKIN: Warm and dry. CARDIOVASCULAR: Regular rate and rhythm. RESPIRATORY: No accessory muscle use. GASTROINTESTINAL: Abdomen soft, non-tender, nondistended. MUSCULOSKELETAL: Extremities without clubbing, cyanosis, or edema. NEUROLOGICAL: Awake and alert. No aphasia, No facial asymmetry, Motor grossly within normal limits. Five out of 5 muscle strength in the arms and legs. Results Procedures completed during hospitalization: none Labs on day of discharge: Labs from last 24 hours 07/11/18 07/11/18 07/10/18 06:14 03:11 21:20 Sodium 144 Potassium 4.0 Chloride 109 H Carbon Dioxide 25.1 Anion Gap 10 BUN 14 Creatinine 0.88 Estimated GFR 86 L POC Glucose 105 154 H Random Glucose 124 H Calcium 8.9 Magnesium 1.9 Total Creatine Kinase 3230 H CK-MB (CK-2) 4.0 H CK-MB (CK-2) % 0.1 07/10/18 07/10/18 17:52 12:47 Sodium Potassium Chloride Carbon Dioxide Anion Gap BUN Creatinine Estimated GFR POC Glucose 99 141 H Random Glucose Calcium Magnesium Total Creatine Kinase CK-MB (CK-2) CK-MB (CK-2) % Preliminary micro results at discharge 07/07/18 22:25 Aerobic Blood Culture - Preliminary Blood - Peripheral No growth in 3 days Anaerobic Blood Culture - Preliminary No growth in 3 days 07/07/18 22:35 Aerobic Blood Culture - Preliminary Blood - Peripheral No growth in 3 days Anaerobic Blood Culture - Preliminary No growth in 3 days - Impressions ITS Impressions Chest X-Ray 07/07/18 21:05 CONCLUSION: No infiltrates seen. Right pleural effusion, possibly chronic. Head CT 07/07/18 21:05 CONCLUSION: 1. No acute findings in the brain. 2. 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 . Venous Doppler Study 07/07/18 21:05 CONCLUSION: 1. The study is negative for bilateral lower extremity deep venous thrombosis. Discharge Plan - Discharge Disposition Patient Disposition: Discharge Home - Discharge Condition Condition: Stable - Discharge Order Discharge Orders: Discharge Order (Routine); Ordered 07/11/18 Ordered By: Dominic Langford Neurology Clear for Discharge (Routine); Ordered 07/09/18 Ordered By: Darius Forrester - Physicians Team Primary Care Provider: [facility] Attending Provider: Dominic Langford Other Providers: Darius Forrester MD
[2018-07-11] MEDS ORDERED: Metoprolol Tartrate 25 MG Tablet PO SCH (10:00)
[2018-07-11] MEDS: Loratadine 10 MG Tablet PO SCH (10:02)
[2018-07-11] MEDS: levETIRAcetam 500 MG Tablet PO SCH (10:02)
[2018-07-11] MEDS: Heparin - SQ 10,000 UNITS/ML Vial SQ SCH (10:03)
[2018-07-11] MEDS: Senna/Docusate Sodium 8.6/50 MG Tablet PO SCH (10:03)
[2018-07-11] MEDS: Sodium Chloride 0.9% 2 ML Flush BID IV.FLUSH SCH (10:03)
[2018-07-11] MEDS: Methocarbamol 500 MG Tablet PO SCH (10:23)
== END 2018-07-11 10:58 | disposition home or self-care (01) | DRG 101 ==
LOC: NEPC 17:59 → NEDA 17:59 → NEPFCDU 07-08 00:42
PROVIDERS: ADMIT Internal Medicine; ATTEND Internal Medicine
CPT/HCPCS: 70450; 71010; 71045; 80048; 80053; 80307; 81001; 82550; 82552; 82948; 82962; 83605; 83735; 84443; 84484; 85025; 85610; 85730; 87040; 93005; 93970; 95819; 96361; 96365; 96366; 99285; G0378; J1644; J1815; J2543; J3480; J7030; J7040